=== PATIENT | male | born 1985 | race Caucasian/White ===

== ENCOUNTER 2016-05-11 01:47 | Emergency (ER) | payer SELFPAY ==
[~2016-05-11] VITALS: Ht 170.2 cm; Wt 69.6 kg
[2016-05-11 01:54] VITALS: TEMP 36.6; Ht 170.2 cm; Wt 69.6 kg
[2016-05-11 02:58] VITALS: BP 117/85; PULSE 98; O2SAT 95
--- NOTE | 2016-05-11 06:34 | EMERGENCY ROOM VISIT NOTE ---
History First contact with patient: 01:49 Chief Complaint: ALCOHOL OVERDOSE Stated Complaint: ALCOHOL OVERDOSE Nursing Triage Summary: pt brought to main ED by BLS services. pt walked into [address] with steady gait. pt reports he was drinking with friends at [employer] and was asked to leave. states he had 6-7 beers and 2 shots, denies drug use, states he is currently in NA. pt states he left [facility] and went to [facility] [address] on [address] and was trying to charge his phone when he fell asleep at the counter, states he woke up to police and EMS crew. PBT 0.167 reported by EMS pt alert and oriented x4. cooperative at this time. breathing WNL. pt states he can call a ride if his phone was charged. History of Present Illness The patient is a 30 year old male who presents to the Emergency Room for evaluation of alcohol intoxication. The patient states that he was downtown drinking tonight at a local bar, when he was asked to leave. The patient left the bar, and went to [facility] [address] downtown. Evidently the patient's cell phone was running low on battery, and he plugged into certified low vision therapist. The patient then fell asleep at the [facility] [address] at a table. The staff at [facility] [address] contact police, who called EMS and brought patient to the ER for evaluation. The patient states that he was simply tired of waiting for his phone discharge. Because his phone was out of battery he was not able to contact a sober coworker. The patient denies any drug use and states he is usually healthy. He did have a breathalyzer of 0.16. The patient is without additional complaints and rates this discomfort a 0/10. Review of Systems More than 10 systems were reviewed and otherwise negative with the exception of history of present illness. Past Medical/Surgical History No chronic medical disease Family History No pertinent family history Social History Occupation Status: employed Current/Historical Medications No Active Prescriptions or Reported Meds Allergies Coded Allergies: No Known Allergies (Unverified , 05/11/16) Physical Exam Vital Signs Date Time Temp Pulse Resp B/P Pulse Ox O2 Delivery O2 Flow Rate FiO2 05/11/16 02:58 98 18 117/85 95 05/11/16 01:54 36.6 107 18 120/90 99 Room Air Pain Rating (0-10): 0 Physical Exam VITALS: Vitals are noted on the nurse's note and reviewed by myself. Vital signs stable. GENERAL: Well-developed, well-nourished, mildly intoxicated but overall pleasant and cooperative. HEAD: Normocephalic atraumatic. HEART: Regular rate and rhythm without murmurs gallops or rubs. LUNGS: Clear to auscultation bilaterally without wheezes, rales or rhonchi. No retractions or accessory muscle use. ABDOMEN: Positive normal bowel sounds x 4. Soft, nontender, without masses or organomegaly. No guarding or rebound tenderness. MUSCULOSKELETAL: No muscle atrophy, erythema, or edema noted. Full range of motion without joint tenderness in all extremities. Medical Decision & Procedures ED Course Physical exam and history were performed. Nursing notes and EMR were reviewed. Patient appears to have been drinking alcohol this evening, and fell asleep at a [employer]. On examination the patient is cooperative and is able to easily recall the events of the evening. He had a breathalyzer that was performed prehospital that was only 0.16. The patient was able to drink and use the bathroom without difficulty here in the department. I do not feel that he requires blood work or further intervention. He was able to charge his cell phone here in the department, and get in touch with a sober ride. The patient does appear stable for discharge, and was invited back to the ER anytime with any new, worsening, or concerning symptoms. The chart was completed utilizing [employer] Speech Voice Recognition Software. Grammatical errors, random word insertions, pronoun errors, and incomplete sentences are an occasional consequence of this system due to software limitations, ambient noise, and hardware issues. Any formal questions or concerns about the content, text, or information contained within the body of this dictation should be directly addressed to the provider for clarification. . Medical Decision Differential diagnosis: Etiologies such as alcohol intoxication, toxicologic, infection, hypoglycemia, electrolyte abnormalities, cardiac sources, intracerebral event, neurologic, as well as others were entertained. Impression Primary Impression: Alcohol intoxication Departure Information Dispostion Home / Self-Care Condition GOOD Prescriptions No Active Prescriptions or Reported Meds Forms HOME CARE DOCUMENTATION FORM, IMPORTANT VISIT INFORMATION Patient Instructions My [facility] Additional Instructions You were seen and evaluated today on an emergency basis only. This is not a substitute for, or an effort to provide, complete comprehensive medical care. It is not possible to recognize and treat all injuries or illnesses in a single emergency department visit. Keep well-hydrated. Small sips of water over a long period of time are better tolerated than large amounts at once. Tylenol 1000 mg every 6 hours as needed for pain (Maximum 3000 mg Tylenol in 24 hr period). Follow up with family doctor as needed. You are welcome to return to the emergency department anytime with new, worsening, or concerning symptoms.
== END 2016-05-11 02:58 | disposition home or self-care (01) ==
LOC: EDBD 01:47 → C.EDA 01:48
DX: T51.0X1A Toxic effect of ethanol, accidental (unintentional), initial encounter (principal)